=== PATIENT | female | born 1990 | race Caucasian/White ===

== ENCOUNTER 2018-12-09 11:13 | Inpatient (IN) | payer BC ==
[~2018-12-09 11:13] MED LIST: Bupivacaine 0.25% 10 ML SDV ONE
[2018-12-09] MEDS ORDERED: ePHEDrine 50 MG/ML SDV IVPUSH PRN (12:02)
[2018-12-09] MEDS ORDERED: fentaNYL 100 MCG/2 ML SDV EPIDUR PRN (12:02)
[2018-12-09] MEDS ORDERED: Ondansetron 4 MG/2 ML SDV IVPUSH PRN ×2 (12:02→12:11)
[2018-12-09] MEDS ORDERED: Nalbuphine 10 MG/1 ML Vial IVPUSH PRN (12:11)
[2018-12-09] MEDS ORDERED: Sodium Chloride 0.9% 10 ML Syringe FLUSH PRN (12:11)
--- NOTE | 2018-12-09 12:11 | PCM.PREANE ---
Preanesthetic Assessment - Anesthesia/Transfusion/Family Hx Anesthesia History: Prior Anesthesia Without Reaction Family History of Anesthesia Reaction: No Transfusion History: No Prior Transfusion(s) Intubation History: Unknown - Review of Systems General: No Symptoms Pulmonary: No Symptoms Cardiovascular: No Symptoms Gastrointestinal: No Symptoms (Motion sickness-with ) Neurological: No Symptoms Other: Reports: None - Physical Assessment NPO Status Date: 12/09/18 NPO Status Time: 13:00 Vital Signs: HR: 104 BP:124/89 Temp:97.5F Sat: 99% Resp:16 Height: 1.68 m Weight: 95.254 kg ASA Class: 2 Mental Status: Alert & Oriented x3 Airway Class: Mallampati = 2 Dentition: Reports: Normal Dentition, Caries Thyro-Mental Finger Breadths: 3 Mouth Opening Finger Breadths: 3 ROM/Head Extension: Full Lungs: Clear to Auscultation, Normal Respiratory Effort Cardiovascular: Regular Rate, Regular Rhythm, No Murmurs - Anesthesia Plan Pre-Op Medication Ordered: None - Acknowledgements Anesthesia Type Planned: Epidural Pt an Appropriate Candidate for the Planned Anesthesia: Yes Alternatives and Risks of Anesthesia Discussed w Pt/Guardian: Yes Pt/Guardian Understands and Agrees with Anesthesia Plan: Yes PreAnesthesia Questionnaire - CURRENT (IN HOUSE) MEDS Current Meds: Current Medications Ephedrine Sulfate (Ephedrine Sulfate) 5 mg IVPUSH ASDIRECTED PRN PRN Reason: Hypotension Fentanyl (Sublimaze) 100 mcg EPIDUR Q3H PRN PRN Reason: Pain Fentanyl/Bupivacaine HCl (Fentanyl/Bupivacaine/Ns 2 Mcg-0.125% 100 Ml) 100 ml EPIDUR ASDIRECTED JAMIA Ondansetron HCl (Zofran) 4 mg IVPUSH ONETIME PRN PRN Reason: Nausea/Vomiting
[2018-12-09] MEDS ORDERED: Bupivacaine/fentaNYL/NS 100 ML Bag EPIDUR SCH (12:15)
[2018-12-09] MEDS ORDERED: Oxytocin/Lactated Ringers 10 UNIT/1,000 ML BAG IV SCH ×2 (12:15)
--- NOTE | 2018-12-09 12:15 | PCM.LDHP ---
L&D History of Present Illness - General Date of Service: 12/09/18 Admit Problem/Dx: Patient Status Order with Admit Dx/Problem 12/09/18 12:11 Patient Status [ADT] Routine Admission Diagnosis/Problem Admission Diagnosis/Problem Normal in third trimester Source of Information: Patient History Limitations: Reports: No Limitations - History of Present Illness Introduction:: Patient is a 28 y/o at 39 6/7 wks who presents for elective IOL. Doing well. Some contractions. No LOF. - Related Data Allergies/Adverse Reactions: Allergies Allergy/AdvReac Type Severity Reaction Status Date / Time No Known Allergies Allergy Verified 12/09/18 12:52 Past Medical History - Past Health History Medical/Surgical History: Denies Medical/Surgical History [employer] History: Reports: : 3 Para: 2 LMP (Approximate): Social & Family History - Tobacco Use Smoking Status *Q: Never Smoker - Alcohol Use Alcohol Use History: No - Recreational Drug Use Recreational Drug Use: No H&P Review of Systems - Review of Systems: Review Of Systems: See Below General: Reports: No Symptoms Pulmonary: Reports: No Symptoms Cardiovascular: Reports: No Symptoms Gastrointestinal: Reports: No Symptoms Genitourinary: Reports: No Symptoms Musculoskeletal: Reports: No Symptoms Psychiatric: Reports: No Symptoms Neurological: Reports: No Symptoms L&D Exam - Exam Exam: See Below - OB Specific Contraction Intensity: Moderate Movement: Active Heart Tones: Present Heart Tones per Min: 125 Heart Rate (FHR) Variability: Moderate (6-25 bmp) Presentation: Vertex - Valles Score Valles Score Cervix Position: Midposition Valles Score Consistency: Soft Valles Score Effacement: 51-70% Valles Score Dilation: 3-4 cm Valles Score Infant's Station: -2 Valles Score Total: 8 - Exam General: Alert, Oriented, Cooperative Lungs: Clear to Auscultation, Normal Respiratory Effort, Crackles Cardiovascular: Regular Rhythm GI/Abdominal Exam: Soft, Non-Tender Genitourinary: Normal external exam Extremities: Normal Inspection Skin: Warm, Dry, Intact - Patient Data Result Diagrams: 12/09/18 12:41 - Problem List (1) 39 weeks gestation of SNOMED Code(s): 40638783 ICD Code: Z3A.39 - 39 WEEKS GESTATION OF Status: Acute Current Visit: Yes (2) Rubella non-immune status, antepartum SNOMED Code(s): 636328609 ICD Code: O99.89 - OTH DISEASES AND CONDITIONS COMPL PREG/CHLDBRTH; Z28.3 - UNDERIMMUNIZATION STATUS Status: Acute Current Visit: Yes Problem List Initiated/Reviewed/Updated: Yes Orders Last 24hrs: Active Orders 24 hr Category Date Time Status Patient Status [ADT] Routine ADT 12/09/18 12:11 Ordered Activity as Tolerated [RC] PFP Care 12/09/18 12:11 Ordered Communication Order [RC] ASDIRECTED Care 12/09/18 12:11 Ordered Communication Order [RC] ASDIRECTED Care 12/09/18 12:11 Ordered Communication Order [RC] ASDIRECTED Care 12/09/18 12:11 Ordered Heart Tones [RC] ASDIRECTED Care 12/09/18 12:12 Ordered Non Stress Test [RC] PER UNIT ROUTINE Care 12/09/18 12:11 Ordered Notify Provider [RC] ASDIRECTED Care 12/09/18 12:02 Active Notify Provider [RC] ASDIRECTED Care 12/09/18 12:11 Active Notify Provider [RC] PRN Care 12/09/18 12:11 Active Oxygen Therapy [RC] ASDIRECTED Care 12/09/18 12:02 Active Peripheral IV Care [RC] . DIRECTED Care 12/09/18 12:12 Ordered Pulse Oximetry [RC] ASDIRECTED Care 12/09/18 12:02 Active Vaginal Exam [RC] ASDIRECTED Care 12/09/18 12:11 Ordered Vital Signs [RC] ASDIRECTED Care 12/09/18 12:11 Ordered Vital Signs [RC] PER UNIT ROUTINE Care 12/09/18 12:11 Ordered Regular Diet [DIET] Diet 12/09/18 Lunch Ordered CBC W/O DIFF,HEMOGRAM [HEME] Routine Lab 12/09/18 12:11 Ordered RAPID PLASMA REAGIN,RPR [CHEM] Routine Lab 12/09/18 12:11 Ordered TYPE AND SCREEN [BBK] Routine Lab 12/09/18 12:11 Ordered Bupivacaine/fentaNYL/NS [fentaNYL/Bupivacaine/NS 2 MCG- Med 12/09/18 12:15 Ordered 0.125% 100 ML] 100 ml EPIDUR ASDIRECTED Lactated Ringers [Ringers, Lactated] 1,000 ml Med 12/09/18 12:15 Ordered IV ASDIRECTED Nalbuphine [Nubain] Med 12/09/18 12:11 Ordered 10 mg IVPUSH Q2H PRN Ondansetron [Zofran] [facility] 12/09/18 12:02 Ordered 4 mg IVPUSH ONETIME PRN Ondansetron [Zofran] [facility] 12/09/18 12:11 Ordered 4 mg IVPUSH Q4H PRN Oxytocin/Lactated Ringers [Pitocin in LR 10 Units/1,000 Med 12/09/18 12:15 Ordered ML] 10 unit in 1,000 ml IV .CONTINUOUS Oxytocin/Lactated Ringers [Pitocin in LR 10 Units/1,000 Med 12/09/18 12:15 Ordered ML] 10 unit in 1,000 ml IV TITRATE Sodium Chloride 0.9% [Saline Flush] [facility] 12/09/18 12:11 Ordered 10 ml FLUSH ASDIRECTED PRN ePHEDrine [ePHEDrine sulfate] [facility] 12/09/18 12:02 Ordered 5 mg IVPUSH ASDIRECTED PRN fentaNYL [Sublimaze] [facility] 12/09/18 12:02 Ordered 100 mcg EPIDUR Q3H PRN Electronic Heart Tones Ext w TOCO [WOMSER] Ot 12/09/18 12:11 Ordered Routine Electronic Heart Tones Internal [WOMSER] Per Unit Ot 12/09/18 12:11 Ordered Routine Peripheral IV Insertion Adult [OM.PC] Routine Ot 12/09/18 12:11 Ordered Resuscitation Status Routine Resus Stat 12/09/18 12:11 Ordered Medication Orders Ephedrine Sulfate (Ephedrine Sulfate) 5 mg IVPUSH ASDIRECTED PRN PRN Reason: Hypotension Fentanyl (Sublimaze) 100 mcg EPIDUR Q3H PRN PRN Reason: Pain Fentanyl/Bupivacaine HCl (Fentanyl/Bupivacaine/Ns 2 Mcg-0.125% 100 Ml) 100 ml EPIDUR ASDIRECTED JAMIA Lactated Ringer's (Ringers, Lactated) 1,000 mls @ 40 mls/hr IV ASDIRECTED JAMIA Oxytocin/Lactated Ringer's (Pitocin In Lr 10 Units/1,000 Ml) 10 unit in 1,000 mls @ 12 mls/hr IV TITRATE JAMIA; Protocol Oxytocin/Lactated Ringer's (Pitocin In Lr 10 Units/1,000 Ml) 10 unit in 1,000 mls @ 500 mls/hr IV .CONTINUOUS JAMIA Nalbuphine HCl (Nubain) 10 mg IVPUSH Q2H PRN PRN Reason: Pain Ondansetron HCl (Zofran) 4 mg IVPUSH ONETIME PRN PRN Reason: Nausea/Vomiting Ondansetron HCl (Zofran) 4 mg IVPUSH Q4H PRN PRN Reason: Nausea/Vomiting Sodium Chloride (Saline Flush) 10 ml FLUSH ASDIRECTED PRN PRN Reason: Keep Vein Open Assessment/Plan Comment:: 28 y/o at 39 6/7 wks who presents for IOL * Labs * GBS negative, no need for antibiotics * Desires epidural * Anticipate * MMR after delivery
[2018-12-09] MEDS: Lactated Ringers 1,000 ML IV SCH ×2 (13:00→13:44)
--- NOTE | 2018-12-09 18:25 | PCM.DEL ---
L & D Note - General Info Date of Service: 12/09/18 - Delivery Note Labor: Induced by Oxytocin Delivery Outcome: Livebirth Infant Delivery Method: Spontaneous Vaginal Delivery-Single Delivery Mode: Spontaneous Presentation: Left Occiput Anterior (HERLINDA) Nuchal Cord: None Anesthesia Type: Epidural Amniotic Fluid Description: Clear Episiotomy Type: None Laceration: None Placenta: Intact, Spontaneous Cord: 3 Vessels, True Knot Estimated Blood Loss: 100 Resuscitation Needed: Yes [place]: Bulb Syringe, Stimulated, Warmed, [place] Used, Warmer Used Delivery Comments (Free Text/Narrative):: patient found to be complete and began pushing. With maternal pushing effort head delivered from an HERLINDA presentation. head retracted against the perineum after delivery. Patient put in deep [place] and suprapubic pressure applied. With manipulation anterior shoulder was able to be delivered. Shoulder dystocia of less than 30 seconds. Remainder of delivered without difficulty. Infant placed on maternal abdomen. Cord clamped and cut. Cord blood obtained. Placenta allowed time to separate and expelled intact. Inspection of the perineum showed no lacerations - General Info Date of Service: 12/10/18 - Patient Data Vitals - Most Recent: Last Vital Signs Temp 37.2 C 12/09/18 12:11 Pulse 81 12/09/18 12:11 Resp 18 12/09/18 12:11 BP 121/79 12/09/18 12:11 Pulse Ox 98 12/09/18 12:11 Weight - Most Recent: 95.254 kg I&O - Last 24 Hours: Intake & Output 12/09/18 12/09/18 12/09/18 06:59 14:59 22:59 Intake Total 1000 Balance 1000 Lab Results Last 24 Hours: Laboratory Results - last 24 hr 12/09/18 12/09/18 12/09/18 Range/Units 12:41 12:41 12:41 WBC 7.08 (3.98-10.04) K/mm3 RBC 4.24 (3.98-5.22) M/mm3 Hgb 10.7 L (11.2-15.7) gm/dl Hct 33.7 L (34.1-44.9) % MCV 79.5 (79.4-94.8) fl MCH 25.2 L (25.6-32.2) pg MCHC 31.8 L (32.2-35.5) g/dl RDW Std Deviation 38.5 (36.4-46.3) fL Plt Count 258 (182-369) K/mm3 MPV 10.9 (9.4-12.3) fl RPR Non-reactive (NONREACTIVE) Blood Type AB POSITIVE Gel Antibody Screen Negative Med Orders - Current: Current Medications Ephedrine Sulfate (Ephedrine Sulfate) 5 mg IVPUSH ASDIRECTED PRN PRN Reason: Hypotension Fentanyl (Sublimaze) 100 mcg EPIDUR Q3H PRN PRN Reason: Pain Last Admin: 12/09/18 13:48 Dose: 100 mcg Fentanyl/Bupivacaine HCl (Fentanyl/Bupivacaine/Ns 2 Mcg-0.125% 100 Ml) 100 ml EPIDUR ASDIRECTED JAMIA Last Admin: 12/09/18 13:48 Dose: 100 ml Lactated Ringer's (Ringers, Lactated) 1,000 mls @ 40 mls/hr IV ASDIRECTED JAMIA Last Admin: 12/09/18 13:44 Dose: 40 mls/hr Oxytocin/Lactated Ringer's (Pitocin In Lr 10 Units/1,000 Ml) 10 unit in 1,000 mls @ 12 mls/hr IV TITRATE JAMIA; Protocol Last Admin: 12/09/18 13:18 Dose: 2 munits/min, 12 mls/hr Oxytocin/Lactated Ringer's (Pitocin In Lr 10 Units/1,000 Ml) 10 unit in 1,000 mls @ 500 mls/hr IV .CONTINUOUS JAMIA Nalbuphine HCl (Nubain) 10 mg IVPUSH Q2H PRN PRN Reason: Pain Ondansetron HCl (Zofran) 4 mg IVPUSH ONETIME PRN PRN Reason: Nausea/Vomiting Ondansetron HCl (Zofran) 4 mg IVPUSH Q4H PRN PRN Reason: Nausea/Vomiting Sodium Chloride (Saline Flush) 10 ml FLUSH ASDIRECTED PRN PRN Reason: Keep Vein Open - Problem List & Annotations (1) 39 weeks gestation of SNOMED Code(s): 59620209 Code(s): Z3A.39 - 39 WEEKS GESTATION OF Status: Acute Current Visit: Yes (2) Rubella non-immune status, antepartum SNOMED Code(s): 094994560 Code(s): O99.89 - OTH DISEASES AND CONDITIONS COMPL PREG/CHLDBRTH; Z28.3 - UNDERIMMUNIZATION STATUS Status: Acute Current Visit: Yes (3) Shoulder dystocia during labor and delivery, delivered SNOMED Code(s): 561676166, 808838195 Code(s): O66.0 - OBSTRUCTED LABOR DUE TO SHOULDER DYSTOCIA Status: Acute Current Visit: Yes (4) Vaginal delivery SNOMED Code(s): 679375391 Code(s): O80 - ENCOUNTER FOR FULL-TERM UNCOMPLICATED DELIVERY Status: Acute Current Visit: Yes - Problem List Review Problem List Initiated/Reviewed/Updated: Yes - My Orders Last 24 Hours: My Active Orders 12/09/18 12:11 Patient Status [ADT] Routine Activity as Tolerated [RC] PFP Communication Order [RC] ASDIRECTED Communication Order [RC] ASDIRECTED Communication Order [RC] ASDIRECTED Notify Provider [RC] ASDIRECTED Notify Provider [RC] PRN Vaginal Exam [RC] ASDIRECTED Vital Signs [RC] ASDIRECTED Vital Signs [RC] PER UNIT ROUTINE Nalbuphine [Nubain] 10 mg IVPUSH Q2H PRN Ondansetron [Zofran] 4 mg IVPUSH Q4H PRN Sodium Chloride 0.9% [Saline Flush] 10 ml FLUSH ASDIRECTED PRN Electronic Heart Tones Ext w TOCO [WOMSER] Routine Electronic Heart Tones Internal [WOMSER] Per Unit Routine Peripheral IV Insertion Adult [OM.PC] Routine Resuscitation Status Routine 12/09/18 12:12 Heart Tones [RC] ASDIRECTED Peripheral IV Care [RC] . DIRECTED 12/09/18 12:15 Lactated Ringers [Ringers, Lactated] 1,000 ml IV ASDIRECTED Oxytocin/Lactated Ringers [Pitocin in LR 10 Units/1,000 ML] 10 unit in 1,000 ml IV .CONTINUOUS Oxytocin/Lactated Ringers [Pitocin in LR 10 Units/1,000 ML] 10 unit in 1,000 ml IV TITRATE 12/09/18 18:22 Patient Status Manage Transfer [TRANSFER] Routine 12/09/18 Lunch Regular Diet [DIET] - Assessment Assessment:: 28 y/o G3 now P3003 PPD#0 from at 39 6/7 wks - Plan Plan:: * Routine cares * Encourage breast feeding * Discharge home in 1-2 days
[2018-12-09] MEDS ORDERED: Benzocaine/Menthol 20%-0.5% Spray 56 GM Canister TOP PRN (19:15)
[2018-12-09] MEDS ORDERED: Witch Hazel Medicated Pads 40/Jar TOP PRN (19:15)
[2018-12-09] MEDS ORDERED: Docusate Sodium 100 MG Cap PO PRN (19:15)
[2018-12-09] MEDS: Ibuprofen 600 MG Tab PO PRN (20:30)
[2018-12-09] MEDS: Lanolin 100% Cream 7 GM Tube TOP PRN (20:31)
[2018-12-10] MEDS: Acetaminophen 325 MG Tab PO PRN ×3 (00:55→16:24)
[2018-12-10] MEDS: Ibuprofen 600 MG Tab PO PRN ×3 (03:24→20:05)
--- NOTE | 2018-12-10 06:55 | PCM.PNPP ---
- General Info Date of Service: 12/10/18 Functional Status: Reports: Pain Controlled, Tolerating Diet, Ambulating, Urinating - Review of Systems General: Reports: No Symptoms Pulmonary: Reports: No Symptoms Cardiovascular: Reports: No Symptoms Gastrointestinal: Reports: Abdominal Pain (cramping ) Genitourinary: Reports: No Symptoms Musculoskeletal: Reports: No Symptoms Neurological: Reports: No Symptoms - Patient Data Vital Signs - Most Recent: Last Vital Signs Temp 36.8 C 12/10/18 03:23 Pulse 68 12/10/18 03:23 Resp 14 12/10/18 03:23 BP 95/56 L 12/10/18 03:23 Pulse Ox 99 12/10/18 03:23 Weight - Most Recent: 95.254 kg I&O - Last 24 Hours: Intake & Output 12/09/18 12/09/18 12/10/18 14:59 22:59 06:59 Intake Total 1000 Output Total 400 Balance 1000 -400 Lab Results - Last 24 Hours: Laboratory Results - last 24 hr 12/09/18 12/09/18 12/09/18 Range/Units 12:41 12:41 12:41 WBC 7.08 (3.98-10.04) K/mm3 RBC 4.24 (3.98-5.22) M/mm3 Hgb 10.7 L (11.2-15.7) gm/dl Hct 33.7 L (34.1-44.9) % MCV 79.5 (79.4-94.8) fl MCH 25.2 L (25.6-32.2) pg MCHC 31.8 L (32.2-35.5) g/dl RDW Std Deviation 38.5 (36.4-46.3) fL Plt Count 258 (182-369) K/mm3 MPV 10.9 (9.4-12.3) fl RPR Non-reactive (NONREACTIVE) Blood Type AB POSITIVE Gel Antibody Screen Negative Med Orders - Current: Current Medications Acetaminophen (Tylenol) 650 mg PO Q4H PRN PRN Reason: mild pain or fever Last Admin: 12/10/18 00:55 Dose: 650 mg Benzocaine/Menthol (Dermoplast Pain Relief [place]) 0 gm TOP ASDIRECTED PRN PRN Reason: Perineal Comfort Measure Last Admin: 12/09/18 20:31 Dose: 1 canister Docusate Sodium (Colace) 100 mg PO BID PRN PRN Reason: Constipation Emollient Ointment (Lansinoh Hpa) 0 gm TOP ASDIRECTED PRN PRN Reason: Sore Nipples Last Admin: 12/09/18 20:31 Dose: 1 tube Ibuprofen (Motrin) 600 mg PO Q6H PRN PRN Reason: Mild pain or fever Last Admin: 12/10/18 03:24 Dose: 600 mg Measles/Mumps/Rubella Vaccine Live (M-M-R Ii Vaccine) 0.5 ml SUBCUT .ONCE ONE Stop: 12/10/18 18:23 Witch Basia (Tucks) 1 pad TOP ASDIRECTED PRN PRN Reason: Perineal Comfort Measure Last Admin: 12/09/18 20:31 Dose: 1 tub Discontinued Medications Ephedrine Sulfate (Ephedrine Sulfate) 5 mg IVPUSH ASDIRECTED PRN PRN Reason: Hypotension Fentanyl (Sublimaze) 100 mcg EPIDUR Q3H PRN PRN Reason: Pain Last Admin: 12/09/18 13:48 Dose: 100 mcg Fentanyl/Bupivacaine HCl (Fentanyl/Bupivacaine/Ns 2 Mcg-0.125% 100 Ml) 100 ml EPIDUR ASDIRECTED JAMIA Last Admin: 12/09/18 13:48 Dose: 100 ml Lactated Ringer's (Ringers, Lactated) 1,000 mls @ 40 mls/hr IV ASDIRECTED JAMIA Last Admin: 12/09/18 13:44 Dose: 40 mls/hr Oxytocin/Lactated Ringer's (Pitocin In Lr 10 Units/1,000 Ml) 10 unit in 1,000 mls @ 12 mls/hr IV TITRATE JAMIA; Protocol Last Admin: 12/09/18 13:18 Dose: 2 munits/min, 12 mls/hr Oxytocin/Lactated Ringer's (Pitocin In Lr 10 Units/1,000 Ml) 10 unit in 1,000 mls @ 500 mls/hr IV .CONTINUOUS JAMIA Nalbuphine HCl (Nubain) 10 mg IVPUSH Q2H PRN PRN Reason: Pain Ondansetron HCl (Zofran) 4 mg IVPUSH ONETIME PRN PRN Reason: Nausea/Vomiting Ondansetron HCl (Zofran) 4 mg IVPUSH Q4H PRN PRN Reason: Nausea/Vomiting Sodium Chloride (Saline Flush) 10 ml FLUSH ASDIRECTED PRN PRN Reason: Keep Vein Open - Interaction Disposition, : in Room with Family Infant Interaction: Holding Infant Feeding: Breastfed ; Nursed Well Support Person: - Recovery Exam Fundal Tone: Firm Fundal Level: At Umbilicus Fundal Placement: Midline Lochia Amount: Scant Lochia Color: Rubra/Red Perineum Description: Intact, Minimal Bruising/Swelling Episiotomy/Laceration: None Bladder Status: Voiding Urinary Elimination: Voided - Exam General: Alert, Oriented, Cooperative GI/Abdominal Exam: Soft, Non-Tender Extremities: Normal Inspection Skin: Warm, Dry, Intact - Problem List & Annotations (1) 39 weeks gestation of SNOMED Code(s): 37774408 Code(s): Z3A.39 - 39 WEEKS GESTATION OF Status: Acute Current Visit: Yes (2) Rubella non-immune status, antepartum SNOMED Code(s): 179381998 Code(s): O99.89 - OTH DISEASES AND CONDITIONS COMPL PREG/CHLDBRTH; Z28.3 - UNDERIMMUNIZATION STATUS Status: Acute Current Visit: Yes (3) Shoulder dystocia during labor and delivery, delivered SNOMED Code(s): 964846979, 232476955 Code(s): O66.0 - OBSTRUCTED LABOR DUE TO SHOULDER DYSTOCIA Status: Acute Current Visit: Yes (4) Vaginal delivery SNOMED Code(s): 053140061 Code(s): O80 - ENCOUNTER FOR FULL-TERM UNCOMPLICATED DELIVERY Status: Acute Current Visit: Yes - Problem List Review Problem List Initiated/Reviewed/Updated: Yes - My Orders Last 24 Hours: My Active Orders 12/09/18 12:11 Activity as Tolerated [RC] PFP Communication Order [RC] ASDIRECTED Communication Order [RC] ASDIRECTED Communication Order [RC] ASDIRECTED Notify Provider [RC] ASDIRECTED Notify Provider [RC] PRN Vaginal Exam [RC] ASDIRECTED Vital Signs [RC] ASDIRECTED Resuscitation Status Routine 12/09/18 12:12 Heart Tones [RC] ASDIRECTED Peripheral IV Care [RC] . DIRECTED 12/09/18 19:15 Activity as Tolerated [RC] PER UNIT ROUTINE Vital Signs [RC] 09,15,21,03 Acetaminophen [Tylenol] 650 mg PO Q4H PRN Benzocaine/Menthol [Dermoplast Pain Relief [place]] See Dose Instructions TOP ASDIRECTED PRN Docusate Sodium [Colace] 100 mg PO BID PRN Ibuprofen [Motrin] 600 mg PO Q6H PRN Lanolin [Lansinoh HPA] See Dose Instructions TOP ASDIRECTED PRN Witch Basia [Tucks] 1 pad TOP ASDIRECTED PRN Assess Lochia [WOMSER] Per Unit Routine Assess Uterine Involution [WOMSER] Per Unit Routine Breast Pump [WOMSER] Per Unit Routine Heat Therapy [OM.PC] PRN Ice Therapy [OM.PC] Per Unit Routine Perineal Care [OM.PC] Per Unit Routine Peripheral IV Discontinue [OM.PC] Routine Sitz Bath [OM.PC] Per Unit Routine 12/09/18 Dinner Regular Diet [DIET] 12/10/18 18:22 Measles, Mumps & Rubella [M-M-R II Vaccine] 0.5 ml SUBCUT .ONCE ONE 12/10/18 19:15 Heat Therapy [OM.PC] PRN - Assessment Assessment:: 28 y/o PPD#1 from - Plan Plan:: * Routine cares * Breast feeding * Discharge today vs tomorrow * MMR prior to discharge
--- NOTE | 2018-12-10 08:36 | PCM48HPAN ---
Post Anesthesia Note - EVALUATION WITHIN 48HRS OF ANESTHETIC Vital Signs in Normal Range: Yes Patient Participated in Evaluation: Yes Respiratory Function Stable: Yes Airway Patent: Yes Cardiovascular Function Stable: Yes Hydration Status Stable: Yes Pain Control Satisfactory: Yes Nausea and Vomiting Control Satisfactory: Yes Mental Status Recovered: Yes Vital Signs: Last Vital Signs Temp 36.8 C 12/10/18 03:23 Pulse 68 12/10/18 03:23 Resp 14 12/10/18 03:23 BP 95/56 L 12/10/18 03:23 Pulse Ox 99 12/10/18 03:23 - COMMENTS/OBSERVATIONS Free Text/Narrative:: no anesthesia complications noted
[2018-12-10] MEDS: Lanolin 100% Cream 7 GM Tube TOP PRN (09:48)
[2018-12-10] MEDS ORDERED: Oxytocin/Lactated Ringers 10 UNIT/1,000 ML BAG IV ONE (10:22)
--- NOTE | 2018-12-10 17:28 | PCM.DCSUM1 ---
Discharge Summary - Discharge Data Discharge Date: 12/10/18 Discharge Disposition: Home, Self-Care 01 Condition: Good - Referral to Home Health Primary Care Physician: Monique Benton MD - Discharge Diagnosis/Problem(s) (1) 39 weeks gestation of SNOMED Code(s): 49509396 ICD Code: Z3A.39 - 39 WEEKS GESTATION OF Status: Acute Current Visit: Yes (2) Rubella non-immune status, antepartum SNOMED Code(s): 810605178 ICD Code: O99.89 - OTH DISEASES AND CONDITIONS COMPL PREG/CHLDBRTH; Z28.3 - UNDERIMMUNIZATION STATUS Status: Acute Current Visit: Yes (3) Shoulder dystocia during labor and delivery, delivered SNOMED Code(s): 007759393, 132362795 ICD Code: O66.0 - OBSTRUCTED LABOR DUE TO SHOULDER DYSTOCIA Status: Acute Current Visit: Yes (4) Vaginal delivery SNOMED Code(s): 295597238 ICD Code: O80 - ENCOUNTER FOR FULL-TERM UNCOMPLICATED DELIVERY Status: Acute Current Visit: Yes - Patient Summary/Data Complications: None Consults: None Recommended Follow-up Testing/Procedures: Follow up in 3 weeks for check Hospital Course: 28 y/o at 39 6/7 wks who presented for IOL. This was done with pitocin. Had SROM with this. Progressed well to complete dilation. Underwent an notable for a shoulder dystocia. Please see delivery note for full details. patient did well and was discharged home on PPD#1 - Patient Instructions Diet: Regular Diet as Tolerated Activity: As Tolerated Activity, Other: Pelvic Rest for 6 weeks Driving: May Drive Today Showering/Bathing: May Shower Showering/Bathing, Other: May Bathe Notify Provider of: Fever, Increased Pain, Swelling and Redness, Drainage, Nausea and/or Vomiting - Discharge Plan *PRESCRIPTION DRUG MONITORING PROGRAM REVIEWED*: Not Applicable *COPY OF PRESCRIPTION DRUG MONITORING REPORT IN PATIENT OCTAVIO: Not Applicable Home Medications: Home Meds Ibuprofen [Motrin] 600 mg PO Q6H PRN tablet 12/10/18 [Rx] Referrals: Monique Benton MD [Primary Care Provider] - (3 weeks for check ) - Discharge Summary/Plan Comment DC Time >30 min.: No - Patient Data Vitals - Most Recent: Last Vital Signs Temp 36.7 C 12/10/18 16:20 Pulse 75 12/10/18 16:20 Resp 16 12/10/18 16:20 BP 115/71 12/10/18 16:20 Pulse Ox 98 12/10/18 16:20 Weight - Most Recent: 95.254 kg I&O - Last 24 hours: Intake & Output 12/10/18 12/10/18 12/10/18 06:59 14:59 22:59 Intake Total 1000 Balance 1000 Med Orders - Current: Current Medications Acetaminophen (Tylenol) 650 mg PO Q4H PRN PRN Reason: mild pain or fever Last Admin: 12/10/18 16:24 Dose: 650 mg Benzocaine/Menthol (Dermoplast Pain Relief [place]) 0 gm TOP ASDIRECTED PRN PRN Reason: Perineal Comfort Measure Last Admin: 12/09/18 20:31 Dose: 1 canister Docusate Sodium (Colace) 100 mg PO BID PRN PRN Reason: Constipation Emollient Ointment (Lansinoh Hpa) 0 gm TOP ASDIRECTED PRN PRN Reason: Sore Nipples Last Admin: 12/10/18 09:48 Dose: 1 tube Ibuprofen (Motrin) 600 mg PO Q6H PRN PRN Reason: Mild pain or fever Last Admin: 12/10/18 13:10 Dose: 600 mg Measles/Mumps/Rubella Vaccine Live (M-M-R Ii Vaccine) 0.5 ml SUBCUT .ONCE ONE Stop: 12/10/18 18:23 Witch Basia (Tucks) 1 pad TOP ASDIRECTED PRN PRN Reason: Perineal Comfort Measure Last Admin: 12/09/18 20:31 Dose: 1 tub Discontinued Medications Bupivacaine HCl (Sensorcaine-Mpf 0.25%) 10 ml .ROUTE .STK-MED ONE Stop: 12/09/18 00:01 Ephedrine Sulfate (Ephedrine Sulfate) 5 mg IVPUSH ASDIRECTED PRN PRN Reason: Hypotension Fentanyl (Sublimaze) 100 mcg EPIDUR Q3H PRN PRN Reason: Pain Last Admin: 12/09/18 13:48 Dose: 100 mcg Fentanyl/Bupivacaine HCl (Fentanyl/Bupivacaine/Ns 2 Mcg-0.125% 100 Ml) 100 ml EPIDUR ASDIRECTED JAMIA Last Admin: 12/09/18 13:48 Dose: 100 ml Lactated Ringer's (Ringers, Lactated) 1,000 mls @ 40 mls/hr IV ASDIRECTED JAMIA Last Admin: 12/09/18 13:44 Dose: 40 mls/hr Oxytocin/Lactated Ringer's (Pitocin In Lr 10 Units/1,000 Ml) 10 unit in 1,000 mls @ 12 mls/hr IV TITRATE JAMIA; Protocol Last Titration: 12/09/18 19:30 Dose: 250 mls/hr Oxytocin/Lactated Ringer's (Pitocin In Lr 10 Units/1,000 Ml) 10 unit in 1,000 mls @ 500 mls/hr IV .CONTINUOUS JAMIA Oxytocin/Lactated Ringer's (Pitocin In Lr 10 Units/1,000 Ml) Confirm Administered Dose 10 unit in 1,000 mls @ as directed IV .STK-MED ONE Stop: 12/10/18 10:23 Nalbuphine HCl (Nubain) 10 mg IVPUSH Q2H PRN PRN Reason: Pain Ondansetron HCl (Zofran) 4 mg IVPUSH ONETIME PRN PRN Reason: Nausea/Vomiting Ondansetron HCl (Zofran) 4 mg IVPUSH Q4H PRN PRN Reason: Nausea/Vomiting Sodium Chloride (Saline Flush) 10 ml FLUSH ASDIRECTED PRN PRN Reason: Keep Vein Open
[2018-12-10] MEDS ORDERED: Measles, Mumps & Rubella Vaccine 0.5 ML SDV SUBCUT ONE (18:22)
== END 2018-12-10 20:38 | disposition home or self-care (01) | DRG 560 ==
LOC: JD.OB 11:13 → OBSVTOIN 18:12 → JD.OB 18:12
PROVIDERS: ADMIT Obstetrics & Gynecology; ATTEND Obstetrics & Gynecology
PROC: 10E0XZZ Delivery of Products of Conception, External Approach (ICD-10-PCS; principal; 2018-12-09)
PROC: 3E033VJ Introduction of Other Hormone into Peripheral Vein, Percutaneous Approach (ICD-10-PCS; 2018-12-09)
PROC: 3E0R3BZ Introduction of Anesthetic Agent into Spinal Canal, Percutaneous Approach (ICD-10-PCS; 2018-12-09)
DX: O66.0 Obstructed labor due to shoulder dystocia (principal); Z3A.39 39 weeks gestation of pregnancy; Z37.0 Single live birth
CPT/HCPCS: 36415; 51702; 59025; 59409; 85027; 86592; 86850; 86900; 86901; A9270-GY; J2590; J3010; J3490; J7120

== ENCOUNTER 2019-08-09 21:54 | Emergency (ER) | payer BC, MEDICAID ==
--- NOTE | 2019-08-09 22:17 | EDM.PDOC ---
ED HPI GENERAL MEDICAL PROBLEM - General Chief Complaint: Skin Complaint Stated Complaint: POSS CYST UNDER ARM Time Seen by Provider: 08/09/19 22:16 - History of Present Illness INITIAL COMMENTS - FREE TEXT/NARRATIVE: 29-year-old female presents the emergency room with a growth in her left axilla. Is been slowly getting worse over the last week and a half or so. But now she is getting some discomfort going down into her arm from this. It is getting bigger. She has not noticed a lot of redness or warmth in the area. She has not had any fevers or chills has not noticed any redness streaking down her arms or elsewhere. She has tried some warm soaks with this and warm compresses at home. But this continues to get worse. Left Axillary Pain Score (Numeric/FACES): 2 - Related Data Allergies Allergy/AdvReac Type Severity Reaction Status Date / Time No Known Allergies Allergy Verified 08/09/19 22:07 Home Meds: Home Meds Etonogestrel [Nexplanon] 1 unit IMPLANT ASDIRECTED 08/09/19 [History] Sulfamethoxazole/Trimethoprim [Bactrim Ds Tablet] 1 each PO Q12H #20 tablet [Rx] Past Medical History - Past Health History Medical/Surgical History: Denies Medical/Surgical History [employer] History: Reports: Social & Family History - Family History Family Medical History: Noncontributory HEENT: Reports: None - Tobacco Use Smoking Status *Q: Never Smoker Second Hand Smoke Exposure: No - Caffeine Use Caffeine Use: Reports: Coffee - Recreational Drug Use Recreational Drug Use: No ED ROS GENERAL - Review of Systems Review Of Systems: See Below Constitutional: Reports: No Symptoms HEENT: Reports: No Symptoms Respiratory: Reports: No Symptoms Cardiovascular: Reports: No Symptoms GI/Abdominal: Reports: No Symptoms Musculoskeletal: Reports: Other (She has a limitation of her shoulder movement secondary to the HPI) ED EXAM, SKIN/RASH Exam: See Below Exam Limited By: No Limitations General Appearance: Alert, No Apparent Distress Respiratory/Chest: No Respiratory Distress, Lungs Clear, Normal Breath Sounds Cardiovascular: Regular Rate, Rhythm, No Edema, No Murmur Extremities: Other (Of the left shoulder is a little limited because of the tenderness caused by this growth in her left axilla.) Neurological: Alert, Oriented, Normal Cognition Location, Skin: Other (Axilla) Characteristics: Other (Noted round growth without any significant erythema or warmth at the surface palpates fairly deep. It is easily movable and does not appear to be adherent to any underlying structures.) Course - Vital Signs Last Recorded V/S: Last Vital Signs Temp 36.9 C 08/09/19 22:04 Pulse 97 08/09/19 22:04 Resp 16 08/09/19 22:04 BP 145/98 H 08/09/19 22:04 Pulse Ox 95 08/09/19 22:04 - Re-Assessments/Exams Free Text/Narrative Re-Assessment/Exam: 08/09/19 22:27 At this point the patient be started on Bactrim DS 1 p.o. twice daily she should continue the warm compresses she should follow-up with Dr. Sandoval later this week. Probably a cyst doubt any significant skin changes I cannot be certain at this point. Departure - Departure Time of Disposition: 22:29 Disposition: Home, Self-Care 01 Clinical Impression: Sebaceous cyst of left axilla - Discharge Information Referrals: PCP,None [Primary Care Provider] - Seferino Sandoval MD [Physician] - Forms: ED Department Discharge Additional Instructions: Return to the emergency room with any questions problems or worsening symptoms. Call Dr. Sandoval's office and follow-up with him later this week. [phone] Continue the warm compresses every couple hours while you are awake. You had a prescription for Bactrim DS sent to the clinic pharmacy take 1 twice daily for 10 days until all gone. Sepsis Event Note - Evaluation Sepsis Screening Result: No Definite Risk - Focused Exam Vital Signs: Vital Signs Temp Pulse Resp BP Pulse Ox 08/09/19 22:04 36.9 C 97 16 145/98 H 95 Date Exam was Performed: 08/09/19 Time Exam was Performed: 22:17
[2019-08-09] MEDS ORDERED: Sulfamethoxazole/Trimethoprim 800-160 MG Tab PO ONE (22:24)
== END 2019-08-09 22:45 | disposition home or self-care (01) ==
LOC: JD.ED 21:54
DX: L72.3 Sebaceous cyst (principal)
CPT/HCPCS: 99282; A9270; 99283